=== PATIENT | male | born 1965 | race Caucasian/White ===

== ENCOUNTER 2020-08-21 10:08 | Outpatient (REF) | payer OTHER, SELFPAY ==
[2020-08-21 12:29] LABS: Alanine Aminotransferase 19 U/L (0-40); Albumin Level 4.5 g/dL (3.5-5.0); Alkaline Phosphatase 93 U/L (39-117); Anion Gap 13 (12-20); Aspartate Amino Transferase 15 U/L (5-37); Bilirubin Total 0.3 mg/dL (0.0-1.0); Blood Urea Nitrogen 9 mg/dL (9-16); Calcium 9.2 mg/dL (8.4-10.2); Carbon Dioxide 26 mmol/L (22-29); Chloride 98 mmol/L (96-108); Estimated Glomerular Filt Rate > 60; Glucose Random 107 mg/dL (60-115); Potassium 4.1 mmol/l (3.3-5.1); Sodium 133 mmol/L (135-145); Total Protein 6.8 g/dL (6.5-8.0)
== END 2020-08-21 10:09 | disposition home or self-care (01) ==
LOC: HO.LAB 10:08
PROVIDERS: PCP Internal Medicine; Visit Provider Internal Medicine
DX: E87.1 Hypo-osmolality and hyponatremia (principal); I10 Essential (primary) hypertension
CPT/HCPCS: 80053

== ENCOUNTER 2020-12-04 09:42 | Outpatient (REF) | payer OTHER, SELFPAY ==
[2020-12-04 10:46] LABS: MANUAL DIFF FLAG NO
[2020-12-04 10:57] LABS: Eosinophils Absolute Auto 0.4 X10*3/uL (0.0-0.4); Eosinophils Percent Auto 8.7 % (0-4); Hematocrit 40.1 % (42-52); Hemoglobin 14.4 g/dl (14.0-18.0); Imm Gran Abs Auto 0.02 X10*3/uL (0.00-0.03); Imm Gran Pct Auto 0.5 % (0.0-0.4); Lymphocytes Absolute Auto 1.1 X10*3/uL (1.2-4.9); Lymphocytes Percent Auto 26.7 % (20-40); Mean Corpuscular HGB Conc 35.9 g/dl (31.0-36.0); Mean Corpuscular Hemoglobin 30.6 pg (27.0-33.0); Mean Corpuscular Volume 85.3 fL (80-98); Monocytes Absolute Auto 0.5 X10*3/uL (0.1-1.2); Monocytes Percent Auto 12.1 % (2-11); Neutrophils Absolute Auto 2.1 X10*3/uL (2.0-8.3); Platelet Count 292 X10*3/uL (160-400); Red Cell Distribution Width 11.5 % (11.0-16.0)
[2020-12-04 11:38] LABS: Alanine Aminotransferase 13 U/L (0-40); Albumin Level 4.6 g/dL (3.5-5.0); Alkaline Phosphatase 105 U/L (39-117); Anion Gap 12 (12-20); Aspartate Amino Transferase 15 U/L (5-37); Bilirubin Total 0.5 mg/dL (0.0-1.0); Blood Urea Nitrogen 11 mg/dL (9-16); Calcium 9.1 mg/dL (8.4-10.2); Carbon Dioxide 28 mmol/L (22-29); Chloride 96 mmol/L (96-108); Cholesterol 157 mg/dL; Estimated Glomerular Filt Rate > 60; Glucose Random 93 mg/dL (60-115); HDL Cholesterol 61 mg/dL; LDL Cholesterol Calculated 86 mg/dl; Sodium 132 mmol/L (135-145); Thyroid Stimulating Hormone 1.39 uIU/mL (0.32-4.0); Triglycerides 51 mg/dL
== END 2020-12-04 09:43 | disposition home or self-care (01) ==
LOC: HO.LAB 09:42
PROVIDERS: PCP Internal Medicine; Visit Provider Internal Medicine
DX: E78.00 Pure hypercholesterolemia, unspecified (principal); E87.1 Hypo-osmolality and hyponatremia
CPT/HCPCS: 36415; 80053; 80061; 84443; 85025

== ENCOUNTER 2021-02-02 11:11 | Outpatient (REF) | payer OTHER, SELFPAY ==
--- NOTE | ~2021-02-02 | XR_ITS ---
EXAMINATION: XR SACROILIAC JOINTS CLINICAL INFORMATION: Left sacroiliac pain COMPARISON: None TECHNIQUE: 3 views of the sacroiliac joints FINDINGS: Sacroiliac joints are normal-appearing without evidence of proliferative or erosive arthritis. Bones of the pelvis are unremarkable. Soft tissues are unremarkable. XR/XR sacroiliac joint 1-2V IMPRESSION: Normal-appearing sacroiliac joints.
== END 2021-02-02 11:12 | disposition home or self-care (01) ==
LOC: HO.XRAY 11:11
PROVIDERS: PCP Internal Medicine; Visit Provider Internal Medicine
DX: M53.3 Sacrococcygeal disorders, not elsewhere classified (principal)
CPT/HCPCS: 72200

== ENCOUNTER 2021-03-21 09:45 | Outpatient (REF) | payer OTHER, SELFPAY ==
[2021-03-21 11:05] LABS: Glucose Urine UA NEG (NEG); Leukocyte Esterase Urine TRACE (NEG); Nitrite Urine NEG (NEG); Specific Gravity - Urine 1.015 (1.005-1.025); Urine Blood NEG (NEG); Urine Ketones NEG (NEG); Urine Protein NEG (NEG-TRACE)
[2021-03-21 11:10] LABS: Appearance Urine CLEAR; Color Urine YELLOW
[2021-03-21 11:26] LABS: Mucus Urine 1+ /LPF; RBC Urine 0-2 /HPF (0)
[2021-03-21 11:28] LABS: Potassium Urine Random 45.1 mmol/L
[2021-03-21 11:28] LABS: Anion Gap 9 (12-20); Blood Urea Nitrogen 11 mg/dL (9-16); Calcium 9.1 mg/dL (8.4-10.2); Carbon Dioxide 30 mmol/L (22-29); Chloride 94 mmol/L (96-108); Estimated Glomerular Filt Rate > 60; Potassium 4.1 mmol/L (3.3-5.1); Sodium 129 mmol/L (135-145)
== END 2021-03-21 09:46 | disposition home or self-care (01) ==
LOC: HO.LAB 09:45
PROVIDERS: PCP Internal Medicine; Visit Provider Internal Medicine Hypertension Specialist
DX: N18.30 Chronic kidney disease, stage 3 unspecified (principal)
CPT/HCPCS: 36415; 80051; 81001; 82310; 82436; 82565; 84133; 84300; 84520

== ENCOUNTER 2021-10-03 11:36 | Outpatient (REF) | payer OTHER, SELFPAY | END 2021-10-03 11:37 | disposition home or self-care (01) | LOC: HO.HMGCLDS 11:36 | PROVIDERS: Visit Provider Internal Medicine | DX: Z20.822 Contact with and (suspected) exposure to COVID-19 (principal) | CPT/HCPCS: C9803; U0003; U0005 ==

== ENCOUNTER 2021-11-30 08:47 | Outpatient (REF) | payer OTHER, SELFPAY ==
[2021-11-30 10:02] LABS: Alanine Aminotransferase 11 U/L (0-40); Albumin Level 4.3 g/dL (3.5-5.0); Alkaline Phosphatase 119 U/L (39-117); Anion Gap 10 (12-20); Aspartate Amino Transferase 13 U/L (5-37); Bilirubin Total 0.5 mg/dL (0.0-1.0); Blood Urea Nitrogen 13 mg/dL (9-16); Calcium 9.9 mg/dL (8.4-10.2); Carbon Dioxide 30 mmol/L (22-29); Chloride 100 mmol/L (96-108); Cholesterol 141 mg/dL; Estimated Glomerular Filt Rate 58; Glucose Random 107 mg/dL (60-115); HDL Cholesterol 55 mg/dL; LDL Cholesterol Calculated 75 mg/dl; Potassium 4.3 mmol/L (3.3-5.1); Sodium 136 mmol/L (135-145); Total Protein 6.9 g/dL (6.5-8.0); Triglycerides 58 mg/dL
== END 2021-11-30 08:48 | disposition home or self-care (01) ==
LOC: HO.LAB 08:47
PROVIDERS: PCP Internal Medicine; Visit Provider Internal Medicine
DX: E78.00 Pure hypercholesterolemia, unspecified (principal); E87.1 Hypo-osmolality and hyponatremia; F31.9 Bipolar disorder, unspecified; J45.21 Mild intermittent asthma with (acute) exacerbation
CPT/HCPCS: 36415; 80053; 80061; 84443

== ENCOUNTER 2022-03-21 08:54 | Outpatient (REF) | payer OTHER, SELFPAY ==
[2022-03-21 10:12] LABS: Anion Gap 11 (12-20); Blood Urea Nitrogen 11 mg/dL (9-16); Calcium 9.2 mg/dL (8.4-10.2); Carbon Dioxide 26 mmol/L (22-29); Chloride 102 mmol/L (96-108); Estimated Glomerular Filt Rate > 60; Glucose Random 107 mg/dL (60-115); Potassium 4.2 mmol/L (3.3-5.1); Sodium 135 mmol/L (135-145)
== END 2022-03-21 08:55 | disposition home or self-care (01) ==
LOC: HO.LAB 08:54
PROVIDERS: PCP Internal Medicine; Visit Provider Internal Medicine Hypertension Specialist
DX: E87.1 Hypo-osmolality and hyponatremia (principal)
CPT/HCPCS: 36415; 80048

== ENCOUNTER 2022-06-06 09:48 | Outpatient (REF) | payer OTHER, SELFPAY ==
[2022-06-06 10:55] LABS: Alanine Aminotransferase 10 U/L (0-40); Albumin Level 4.3 g/dL (3.5-5.0); Alkaline Phosphatase 125 U/L (39-117); Anion Gap 12 (12-20); Aspartate Amino Transferase 15 U/L (5-37); Bilirubin Total 0.5 mg/dL (0.0-1.0); Blood Urea Nitrogen 13 mg/dL (9-16); Calcium 9.2 mg/dL (8.4-10.2); Carbon Dioxide 25 mmol/L (22-29); Chloride 100 mmol/L (96-108); Estimated Glomerular Filt Rate > 60; Glucose Random 96 mg/dL (60-115); Potassium 4.3 mmol/L (3.3-5.1); Sodium 133 mmol/L (135-145); Total Protein 6.8 g/dL (6.5-8.0)
== END 2022-06-06 09:49 | disposition home or self-care (01) ==
LOC: HO.LAB 09:48
PROVIDERS: Visit Provider Internal Medicine
DX: Z00.00 Encounter for general adult medical examination without abnormal findings (principal); E78.00 Pure hypercholesterolemia, unspecified; J45.21 Mild intermittent asthma with (acute) exacerbation; N14.1 Nephropathy induced by other drugs, medicaments and biological substances
CPT/HCPCS: 36415; 80053

== ENCOUNTER 2022-12-31 08:11 | Outpatient (REF) | payer OTHER, SELFPAY ==
[2022-12-31 08:35] LABS: MANUAL DIFF FLAG NO
[2022-12-31 09:39] LABS: Basophils Absolute Auto 0.1 X10*3/uL (0.0-0.2); Basophils Percent Auto 1.2 % (0-2); Eosinophils Absolute Auto 0.7 X10*3/uL (0.0-0.4); Eosinophils Percent Auto 14.3 % (0-4); Hematocrit 40.3 % (42.0-52.0); Hemoglobin 13.8 g/dl (14.0-18.0); Imm Gran Abs Auto 0.01 X10*3/uL (0.00-0.03); Imm Gran Pct Auto 0.2 % (0.0-0.4); Lymphocytes Absolute Auto 1.2 X10*3/uL (1.2-4.9); Lymphocytes Percent Auto 24.3 % (20-40); Mean Corpuscular HGB Conc 34.2 g/dl (31.0-36.0); Mean Corpuscular Hemoglobin 30.5 pg (27.0-33.0); Mean Corpuscular Volume 89.2 fL (80.0-98.0); Mean Platelet Volume 9.9 fL (9.4-12.4); Monocytes Absolute Auto 0.6 X10*3/uL (0.1-1.2); Monocytes Percent Auto 11.2 % (2-11); Neutrophils Absolute Auto 2.5 x10*3/uL (2.0-8.3); Neutrophils Percent Auto 48.8 % (45-73); Platelet Count 285 X10*3/uL (160-400); Red Blood Count 4.52 X10*6/uL (4.60-5.80); Red Cell Distribution Width 11.9 % (11.0-16.0); White Blood Count 5.1 X10*3/uL (4.8-10.8)
[2022-12-31 10:34] LABS: Alanine Aminotransferase 11 U/L (0-40); Albumin Level 4.3 g/dL (3.5-5.0); Alkaline Phosphatase 119 U/L (39-117); Anion Gap 12 (12-20); Aspartate Amino Transferase 16 U/L (5-37); Bilirubin Total 0.5 mg/dL (0.0-1.0); Blood Urea Nitrogen 20 mg/dL (9-16); Calcium 9.1 mg/dL (8.4-10.2); Carbon Dioxide 27 mmol/L (22-29); Chloride 103 mmol/L (96-108); Cholesterol 139 mg/dL; Estimated Glomerular Filt Rate > 60; Glucose Random 98 mg/dL (60-115); HDL Cholesterol 56 mg/dL; LDL Cholesterol Calculated 76 mg/dl; Potassium 3.9 mmol/L (3.3-5.1); Sodium 138 mmol/L (135-145); Total Protein 6.7 g/dL (6.5-8.0); Triglycerides 39 mg/dL
[2022-12-31 10:37] LABS: Thyroid Stimulating Hormone 1.26 uIU/mL (0.32-4.0)
== END 2022-12-31 08:12 | disposition home or self-care (01) ==
LOC: HO.LAB 08:11
PROVIDERS: Absent Provider Internal Medicine Hypertension Specialist; PCP Internal Medicine; Visit Provider Internal Medicine
DX: J45.21 Mild intermittent asthma with (acute) exacerbation (principal); E87.1 Hypo-osmolality and hyponatremia; E78.00 Pure hypercholesterolemia, unspecified
CPT/HCPCS: 36415; 80053; 80061; 84443; 85025

== ENCOUNTER 2023-05-05 13:40 | Outpatient (REF) | payer OTHER, SELFPAY ==
[2023-05-05 14:57] LABS: Alanine Aminotransferase 15 U/L (0-40); Albumin Level 4.3 g/dL (3.5-5.0); Alkaline Phosphatase 141 U/L (39-117); Anion Gap 9 (12-20); Aspartate Amino Transferase 13 U/L (5-37); Bilirubin Total 0.3 mg/dL (0.0-1.0); Blood Urea Nitrogen 17 mg/dL (9-16); Calcium 9.7 mg/dL (8.4-10.2); Carbon Dioxide 32 mmol/L (22-29); Chloride 103 mmol/L (96-108); Estimated Glomerular Filt Rate > 60; Glucose Random 105 mg/dL (60-115); Potassium 4.5 mmol/L (3.3-5.1); Sodium 139 mmol/L (135-145); Total Protein 7.1 g/dL (6.5-8.0)
== END 2023-05-05 13:41 | disposition home or self-care (01) ==
LOC: HO.LAB 13:40
PROVIDERS: PCP Internal Medicine; Visit Provider Internal Medicine
DX: Z00.00 Encounter for general adult medical examination without abnormal findings (principal); E78.00 Pure hypercholesterolemia, unspecified; I10 Essential (primary) hypertension; J45.901 Unspecified asthma with (acute) exacerbation; Z12.5 Encounter for screening for malignant neoplasm of prostate
CPT/HCPCS: 36415; 80053; 84153

== ENCOUNTER 2023-07-14 16:11 | Outpatient (REF) | payer OTHER, SELFPAY ==
[2023-07-14 17:49] LABS: Anion Gap 14 (12-20); Blood Urea Nitrogen 25 mg/dL (9-16); Calcium 9.9 mg/dL (8.4-10.2); Carbon Dioxide 26 mmol/L (22-29); Chloride 105 mmol/L (96-108); Estimated Glomerular Filt Rate 42; Potassium 3.9 mmol/L (3.3-5.1); Sodium 141 mmol/L (135-145)
== END 2023-07-14 16:12 | disposition home or self-care (01) ==
LOC: HO.LAB 16:11
PROVIDERS: Visit Provider Internal Medicine Hypertension Specialist
DX: N18.2 Chronic kidney disease, stage 2 (mild) (principal)
CPT/HCPCS: 36415; 80051; 82310; 82565; 84520

== ENCOUNTER 2024-04-05 13:29 | Outpatient (REF) | payer OTHER, SELFPAY ==
[2024-04-05 14:12] LABS: MANUAL DIFF FLAG NO
[2024-04-05 15:40] LABS: Basophils Absolute Auto 0.1 X10*3/uL (0.0-0.2); Eosinophils Absolute Auto 0.3 X10*3/uL (0.0-0.4); Eosinophils Percent Auto 5.9 % (0-4); Hematocrit 37.5 % (42.0-52.0); Hemoglobin 13.2 g/dl (14.0-18.0); Imm Gran Abs Auto 0.01 X10*3/uL (0.00-0.03); Imm Gran Pct Auto 0.2 % (0.0-0.4); Lymphocytes Absolute Auto 1.1 X10*3/uL (1.2-4.9); Lymphocytes Percent Auto 22.8 % (20-40); Mean Corpuscular HGB Conc 35.2 g/dl (31.0-36.0); Mean Corpuscular Hemoglobin 30.8 pg (27.0-33.0); Mean Corpuscular Volume 87.6 fL (80.0-98.0); Mean Platelet Volume 9.6 fL (9.4-12.4); Monocytes Absolute Auto 0.5 X10*3/uL (0.1-1.2); Monocytes Percent Auto 10.4 % (2-11); Neutrophils Absolute Auto 2.9 x10*3/uL (2.0-8.3); Neutrophils Percent Auto 59.7 % (45-73); Platelet Count 275 X10*3/uL (160-400); Red Blood Count 4.28 X10*6/uL (4.60-5.80); Red Cell Distribution Width 11.9 % (11.0-16.0); White Blood Count 4.9 X10*3/uL (4.8-10.8)
[2024-04-05 16:18] LABS: Anion Gap 9 (12-20); Blood Urea Nitrogen 13 mg/dL (9-16); Calcium 9.8 mg/dL (8.4-10.2); Carbon Dioxide 30 mmol/L (22-29); Chloride 104 mmol/L (96-108); Estimated Glomerular Filt Rate > 60; Glucose Random 94 mg/dL (60-115); Potassium 4.2 mmol/L (3.3-5.1); Sodium 139 mmol/L (135-145)
== END 2024-04-05 13:30 | disposition home or self-care (01) ==
LOC: HO.LAB 13:29
PROVIDERS: PCP Internal Medicine; Visit Provider Internal Medicine Hypertension Specialist
DX: N18.9 Chronic kidney disease, unspecified (principal)
CPT/HCPCS: 36415; 80048; 85025; 99212

== ENCOUNTER 2024-04-05 13:29 | Outpatient (AMB) | payer OTHER, SELFPAY ==
[2024-04-05 13:32] VITALS: BP 102/72; PULSE 90; O2SAT 96; BMI 24.5
--- NOTE | 2024-04-05 13:32 | HO.NEPHOV_ITS ---
Vital Signs 04/05/24 13:32 Height 6 ft 1 in Weight 186 lb BMI 24.5 BP 102/72 Blood Pressure Location Lt brachial Position Sitting Pulse 90 Pulse Source Pulse Oximeter Pulse Oximetry (%) 96 Oxygen Delivery Method Room Air Intake Visit Reasons: Previous pt/ Unable to reach Perforator Typist Required: No Accompanied by: Self / Same As Patient Allergies Penicillins Allergy (Mild, Verified 04/05/24 13:36) UNKNOWN Sulfa (Sulfonamide Antibiotics) Allergy (Mild, Verified 04/05/24 13:36) UNKNOWN Medication List - Last Reconciled 04/05/24 by Brendon Mcwilliams MD albuterol sulfate 90 mcg/actuation (Ventolin HFA) inhalation PRN losartan 50 mg PO DAILY oxcarbazepine 1,800 mg PO DAILY quetiapine 800 mg PO BEDTIME simvastatin 20 mg PO BEDTIME zolpidem 10 mg PO BEDTIME PRN HPI Comments Details: Vignesh is here for follow-up regarding CKD. He is well known to me. He has mild CKD and renal function has been stable for the last few years. Today he has no new complaints. His oral intake is adequate. No changes have been made to his medications He has no polyuria polydipsia. History of flank pain and he has not had any ultrasonogram of the [facility] Family History (Updated 04/05/24 @ 13:35 by ZACHARY Woods) Father Kidney disease Sister Heart attack Social History (Updated 04/05/24 @ 13:35 by ZACHARY Woods) Alcohol intake: never Patient Tobacco Use Status: Never used Tobacco Physical Exam Vital Signs: Last Vital Signs Pulse 90 04/05/24 13:32 BP 102/72 04/05/24 13:32 Pulse Ox 96 04/05/24 13:32 Oxygen Delivery Method Room Air 04/05/24 13:32 BMI result Body Mass Index 24.5 Const General: comfortable; No acute distress Orientation/consciousness: patient oriented x3 Eyes General: appearance normal, both eyes and all related structures Visual Oliveros: normal visual oliveros by confrontation Neck Neck: Yes supple and Yes no JVD Resp Effort & Inspection: normal respiratory effort and respiratory effort not decreased Auscultation: rhonchi Cardio Palpation: no palpable S3 and no palpable S4 Heart sounds: no rubs GI Inspection: Yes normal to inspection Palpation (GI): Soft to palpation Percussion: Yes normal to percussion Auscultation: normal bowel sounds General: Yes no CVA tenderness Back/Spine/Pelvis Back: no CVA tenderness Skin General skin exam: no petechiae and no purpura Neuro General: patient oriented x3 and no focal motor deficits Extrem General: No clubbing and No edema Results Reviewed Nephrology Results: Hgb 13.2 g/dl (14.0-18.0) L 04/05/24 WBC 4.9 X10*3/uL (4.8-10.8) 04/05/24 Plt Count 275 X10*3/uL (160-400) 04/05/24 Sodium 139 mmol/L (135-145) 04/05/24 Potassium 4.2 mmol/L (3.3-5.1) 04/05/24 Chloride 104 mmol/L (96-108) 04/05/24 Carbon Dioxide 30 mmol/L (22-29) H 04/05/24 BUN 13 mg/dL (9-16) 04/05/24 Creatinine 0.89 mg/dL (0.5-1.4) 04/05/24 Calcium 9.8 mg/dL (8.4-10.2) 04/05/24 Urine Protein NEG MG/DL (NEG-TRACE) 03/21/21 Assessment & Plan Assessment & Plan (1) CKD (chronic kidney disease): Code(s): N18.9 - Chronic kidney disease, unspecified Category: Medical Plan Vignesh has mild CKD. Renal function stable. Recent creatinine is down to 0.89 which may be his baseline. Goal is to slow the progression of the kidney disease. Encouraged him to stand low-sodium diet He has to increase his fluid intake. Continue overt nephrotoxic agents. Watch for polyuria polydipsia. Orders: Orders UA and rflx microscopic 04/05/24 N18.9 - Chronic kidney disease, unspecified Complete Blood Count Auto Diff 04/05/24 N18.9 - Chronic kidney disease, unspecified Basic Metabolic Panel 04/05/24 N18.9 - Chronic kidney disease, unspecified Total Protein Urine Random 04/05/24 N18.9 - Chronic kidney disease, unspecified Creatinine Urine 04/05/24 N18.9 - Chronic kidney disease, unspecified US renal BI 04/05/24 N18.9 - Chronic kidney disease, unspecified Coding Level of Care Code Est Pt Level 4 (40143) Diagnoses CKD (chronic kidney disease) N18.9
== END 2024-04-05 13:48 | disposition home or self-care (01) ==
PROVIDERS: PCP Internal Medicine; Visit Provider Internal Medicine Hypertension Specialist
DX: N18.9 Chronic kidney disease, unspecified (principal)
CPT/HCPCS: 99214

== ENCOUNTER 2024-04-07 12:18 | Outpatient (REF) | payer OTHER, SELFPAY ==
[2024-04-07 13:04] LABS: Appearance Urine Clear; Color Urine Yellow; Glucose Urine UA Negative (Negative); Leukocyte Esterase Urine Negative (Negative); Nitrite Urine Negative (Negative); PH 5.5 (5.0-9.0); Specific Gravity - Urine 1.025 (1.005-1.025); Urine Blood Negative (Negative); Urine Ketones Negative (Negative); Urine Protein Trace mg/dL (Neg-Trace)
[2024-04-07 13:36] LABS: Creatinine Urine 200.11 mg/dL; Total Protein Urine Random 13 mg/dL (<12)
== END 2024-04-07 12:19 | disposition home or self-care (01) ==
LOC: HO.LAB 12:18
PROVIDERS: PCP Internal Medicine; Visit Provider Internal Medicine Hypertension Specialist
DX: N18.9 Chronic kidney disease, unspecified (principal)
CPT/HCPCS: 81003; 82570; 84156

== ENCOUNTER 2024-04-16 14:21 | Outpatient (REF) | payer OTHER, SELFPAY ==
--- NOTE | ~2024-04-16 | US_ITS ---
EXAMINATION: US RETROPERITONEAL LIMITED (RENAL ONLY) CLINICAL INFORMATION: Chronic kidney disease, unspecified. COMPARISON: CT abdomen and pelvis 08/08/2014. Ultrasound renal 06/10/2013. Ultrasound bladder 06/10/2013. TECHNIQUE: Real-time imaging of the kidneys. FINDINGS: RIGHT KIDNEY: 11.1 x 4.8 x 6.7 cm (SAG x AP x TRV). The kidney is normal in size, contour, and echogenicity. Renal cortical thickness is normal. No calculi or focal parenchymal lesions. No hydronephrosis. LEFT KIDNEY: 12.8 x 5.2 x 6.6 cm (SAG x AP x TRV). The kidney is normal in size, contour, and echogenicity. Renal cortical thickness is normal. No renal calculi or hydronephrosis. A benign mid renal 1.1 cm Bosniak class II renal cyst is noted with some mural calcification which requires no additional imaging or follow up. In retrospect, this can be seen on the prior 2013 CT scan (10:332) but no calcification was present at that time. No solid renal masses are seen. US/US renal BI IMPRESSION: Negative exam.
== END 2024-04-16 14:22 | disposition home or self-care (01) ==
LOC: HO.HMGCX 14:21
PROVIDERS: PCP Internal Medicine; Visit Provider Internal Medicine Hypertension Specialist
DX: N18.9 Chronic kidney disease, unspecified (principal)
CPT/HCPCS: 76775

== ENCOUNTER 2024-05-03 10:54 | Outpatient (AMB) | payer OTHER, SELFPAY ==
[2024-05-03 10:55] VITALS: BP 106/72; PULSE 96; O2SAT 96; BMI 24.8
--- NOTE | 2024-05-03 10:55 | HO.NEPHOV ---
Vital Signs 05/03/24 10:55 Height 6 ft 1 in Weight 188 lb BMI 24.8 BP 106/72 Blood Pressure Location Lt brachial Position Sitting Pulse 96 Pulse Source Pulse Oximeter Pulse Oximetry (%) 96 Oxygen Delivery Method Room Air Intake Visit Reasons: 4 wks follow u/ LVM Review Engineer Required: No Accompanied by: Self / Same As Patient Allergies Penicillins Allergy (Mild, Verified 05/03/24 10:57) UNKNOWN Sulfa (Sulfonamide Antibiotics) Allergy (Mild, Verified 05/03/24 10:57) UNKNOWN Medication List - Last Reconciled 05/03/24 by Brendon Mcwilliams MD albuterol sulfate 90 mcg/actuation (Ventolin HFA) inhalation PRN losartan 50 mg PO DAILY oxcarbazepine 1,800 mg PO DAILY quetiapine 800 mg PO BEDTIME simvastatin 20 mg PO BEDTIME zolpidem 10 mg PO BEDTIME PRN HPI Comments Details: Vignesh is here for follow-up regarding CKD. He is well known to me. He has mild CKD and renal function has been stable for the last few years. Today he has no new complaints. His oral intake is adequate. No changes have been made to his medications He has no polyuria polydipsia. History of flank pain and he has not had any ultrasonogram of the [facility] Family History Father Kidney disease Sister Heart attack Social History Alcohol intake: never Patient Tobacco Use Status: Never used Tobacco Physical Exam Vital Signs: Last Vital Signs Pulse 96 05/03/24 10:55 BP 106/72 05/03/24 10:55 Pulse Ox 96 05/03/24 10:55 Oxygen Delivery Method Room Air 05/03/24 10:55 BMI result Body Mass Index 24.8 Results Reviewed Nephrology Results: Hgb 13.2 g/dl (14.0-18.0) L 04/05/24 WBC 4.9 X10*3/uL (4.8-10.8) 04/05/24 Plt Count 275 X10*3/uL (160-400) 04/05/24 Sodium 139 mmol/L (135-145) 04/05/24 Potassium 4.2 mmol/L (3.3-5.1) 04/05/24 Chloride 104 mmol/L (96-108) 04/05/24 Carbon Dioxide 30 mmol/L (22-29) H 04/05/24 BUN 13 mg/dL (9-16) 04/05/24 Creatinine 0.89 mg/dL (0.5-1.4) 04/05/24 Calcium 9.8 mg/dL (8.4-10.2) 04/05/24 Urine Protein Trace mg/dL (Neg-Trace) 04/07/24 Urine Creatinine 200.11 mg/dL 04/07/24 Renal US 04/16/24 Assessment & Plan Assessment & Plan (1) CKD (chronic kidney disease): Code(s): N18.9 - Chronic kidney disease, unspecified Category: Medical Plan Vignesh has mild CKD. Renal function stable. Recent creatinine is down to 0.89 which may be his baseline. Goal is to slow the progression of the kidney disease. Encouraged him to stand low-sodium diet He has to increase his fluid intake. Continue to avoid nephrotoxic agents. Watch for polyuria polydipsia. Coding Level of Care Code Est Pt Level 3 (91773) Diagnoses CKD (chronic kidney disease) N18.9
== END 2024-05-03 11:10 | disposition home or self-care (01) ==
PROVIDERS: PCP Internal Medicine; Visit Provider Internal Medicine Hypertension Specialist
DX: N18.9 Chronic kidney disease, unspecified (principal)
CPT/HCPCS: 99213

== ENCOUNTER → 2024-05-03 10:54 | Outpatient (BNVA) | payer OTHER, SELFPAY | PROVIDERS: PCP Internal Medicine; Visit Provider Internal Medicine Hypertension Specialist | DX: N18.9 Chronic kidney disease, unspecified (principal) | CPT/HCPCS: 99212 ==

== ENCOUNTER 2024-08-16 12:00 | Outpatient (REF) | payer OTHER, SELFPAY ==
[2024-08-16 13:35] LABS: MANUAL DIFF FLAG NO
[2024-08-16 13:50] LABS: Basophils Absolute Auto 0.1 X10*3/uL (0.0-0.2); Basophils Percent Auto 1.3 % (0-2); Eosinophils Absolute Auto 0.3 X10*3/uL (0.0-0.4); Eosinophils Percent Auto 5.9 % (0-4); Hematocrit 37.5 % (42.0-52.0); Hemoglobin 12.8 g/dl (14.0-18.0); Imm Gran Abs Auto 0.03 X10*3/uL (0.00-0.03); Imm Gran Pct Auto 0.7 % (0.0-0.4); Lymphocytes Percent Auto 21.8 % (20-40); Mean Corpuscular HGB Conc 34.1 g/dl (31.0-36.0); Mean Corpuscular Hemoglobin 30.3 pg (27.0-33.0); Mean Corpuscular Volume 88.7 fL (80.0-98.0); Mean Platelet Volume 9.9 fL (9.4-12.4); Monocytes Absolute Auto 0.5 X10*3/uL (0.1-1.2); Monocytes Percent Auto 10.8 % (2-11); Neutrophils Absolute Auto 2.7 x10*3/uL (2.0-8.3); Neutrophils Percent Auto 59.5 % (45-73); Platelet Count 271 X10*3/uL (160-400); Red Blood Count 4.23 X10*6/uL (4.60-5.80); Red Cell Distribution Width 12.1 % (11.0-16.0); White Blood Count 4.5 X10*3/uL (4.8-10.8)
[2024-08-16 14:10] LABS: Alanine Aminotransferase 18 U/L (0-40); Albumin Level 4.2 g/dL (3.5-5.0); Alkaline Phosphatase 126 U/L (39-117); Anion Gap 10 (12-20); Aspartate Amino Transferase 20 U/L (5-37); Bilirubin Total 0.3 mg/dL (0.0-1.0); Blood Urea Nitrogen 17 mg/dL (9-16); Calcium 9.6 mg/dL (8.4-10.2); Carbon Dioxide 27 mmol/L (22-29); Chloride 104 mmol/L (96-108); Cholesterol 132 mg/dL (<200); Estimated Glomerular Filt Rate > 60; Glucose Random 92 mg/dL (60-115); HDL Cholesterol 54 mg/dL (>40); LDL Cholesterol Calculated 68 mg/dL (<100); Potassium 3.8 mmol/L (3.3-5.1); Sodium 137 mmol/L (135-145); Total Protein 6.7 g/dL (6.5-8.0); Triglycerides 50 mg/dL (<150)
[2024-08-16 14:40] LABS: Prostate Specific Antigen Scr 4.24 ng/mL (<0.05-4.0)
== END 2024-08-16 12:01 | disposition home or self-care (01) ==
LOC: HO.HMGCLDS 12:00
PROVIDERS: PCP Internal Medicine; Visit Provider Internal Medicine
DX: Z00.00 Encounter for general adult medical examination without abnormal findings (principal); E78.00 Pure hypercholesterolemia, unspecified; I10 Essential (primary) hypertension; N40.0 Benign prostatic hyperplasia without lower urinary tract symptoms
CPT/HCPCS: 36415; 80053; 80061; 84153; 85025

== ENCOUNTER 2024-09-06 10:35 | Outpatient (AMB) | payer OTHER, SELFPAY ==
[2024-09-06 10:36] VITALS: BP 92/62; PULSE 94; O2SAT 97; BMI 24.4
--- NOTE | 2024-09-06 10:36 | HO.NEPHOV ---
Vital Signs 09/06/24 10:36 Height 6 ft 1 in Weight 185 lb BMI 24.4 BP 92/62 Blood Pressure Location Lt brachial Position Sitting Pulse 94 Pulse Source Pulse Oximeter Pulse Oximetry (%) 97 Oxygen Delivery Method Room Air Intake Visit Reasons: CKD/ LVM Shake Backboard Notcher Required: No Accompanied by: Self / Same As Patient Allergies Penicillins Allergy (Mild, Verified 09/06/24 10:39) UNKNOWN Sulfa (Sulfonamide Antibiotics) Allergy (Mild, Verified 09/06/24 10:39) UNKNOWN Medication List - Last Reconciled 09/06/24 by Brendon Mcwilliams MD albuterol sulfate 90 mcg/actuation (Ventolin HFA) inhalation PRN losartan 50 mg PO DAILY oxcarbazepine 1,800 mg PO DAILY quetiapine 800 mg PO BEDTIME simvastatin 20 mg PO BEDTIME zolpidem 10 mg PO BEDTIME PRN HPI Comments Details: Vignesh is here for follow-up regarding CKD. He is well known to me. He has mild CKD and renal function has been stable for the last few years. Today he has no new complaints. His oral intake is adequate. No changes have been made to his medications He has no polyuria or polydipsia. History of flank pain and he has not had any ultrasonogram of the [facility] Family History Father Kidney disease Sister Heart attack Social History Alcohol intake: never Patient Tobacco Use Status: Never used Tobacco Physical Exam Vital Signs: Last Vital Signs Pulse 94 09/06/24 10:36 BP 92/62 09/06/24 10:36 Pulse Ox 97 09/06/24 10:36 Oxygen Delivery Method Room Air 09/06/24 10:36 BMI result Body Mass Index 24.4 Comfortable Neck supple no JVD. Lungs entry equal no rales. Heart S1-S2 heard no gallop or rub. Abdomen soft nontender. Neuro alert awake oriented. No asterixis. Extremities no edema. Results Reviewed Nephrology Results: Hgb 12.8 g/dl (14.0-18.0) L 08/16/24 WBC 4.5 X10*3/uL (4.8-10.8) L 08/16/24 Plt Count 271 X10*3/uL (160-400) 08/16/24 Sodium 137 mmol/L (135-145) 08/16/24 Potassium 3.8 mmol/L (3.3-5.1) 08/16/24 Chloride 104 mmol/L (96-108) 08/16/24 Carbon Dioxide 27 mmol/L (22-29) 08/16/24 BUN 17 mg/dL (9-16) H 08/16/24 Creatinine 1.05 mg/dL (0.5-1.4) 08/16/24 Calcium 9.6 mg/dL (8.4-10.2) 08/16/24 Urine Protein Trace mg/dL (Neg-Trace) 04/07/24 Urine Creatinine 200.11 mg/dL 04/07/24 Renal US 04/16/24 Assessment & Plan Assessment & Plan (1) CKD (chronic kidney disease): Code(s): N18.9 - Chronic kidney disease, unspecified Category: Medical Plan iVgnesh has mild CKD. Renal function stable adn at baseline. Goal is to slow the progression of the kidney disease. Encouraged him to stand low-sodium diet He has to increase his fluid intake. Continue to avoid nephrotoxic agents. Watch for polyuria polydipsia. BP is rather low Will decrease Losartan to 25 mg QD from 50 mg ( 09/06/24) Medications: Changed From losartan 50 mg PO DAILY To losartan 25 mg PO DAILY Coding Level of Care Code Est Pt Level 4 (59431) Diagnoses CKD (chronic kidney disease) N18.9
== END 2024-09-06 10:48 | disposition home or self-care (01) ==
PROVIDERS: PCP Internal Medicine; Visit Provider Internal Medicine Hypertension Specialist
DX: N18.2 Chronic kidney disease, stage 2 (mild) (principal)
CPT/HCPCS: 99213

== ENCOUNTER → 2024-09-06 10:35 | Outpatient (BNVA) | payer OTHER, SELFPAY | PROVIDERS: PCP Internal Medicine; Visit Provider Internal Medicine Hypertension Specialist | DX: N18.2 Chronic kidney disease, stage 2 (mild) (principal) | CPT/HCPCS: 99212 ==

== ENCOUNTER 2025-02-22 09:44 | Outpatient (AMB) | payer OTHER, SELFPAY ==
[2025-02-22 09:50] VITALS: BP 118/72; PULSE 77; O2SAT 97; BMI 23.3
--- NOTE | 2025-02-22 09:50 | HO.NEPHOV ---
Vital Signs 02/22/25 09:50 Height 6 ft 1 in Weight 177 lb BMI 23.3 BP 118/72 Blood Pressure Location Rt brachial Position Sitting Pulse 77 Pulse Source Pulse Oximeter Pulse Oximetry (%) 97 Oxygen Delivery Method Room Air Intake Visit Reasons: CKD/ Conf Manager Commodities Required: No Accompanied by: Self / Same As Patient Allergies Penicillins Allergy (Mild, Verified 02/22/25 09:52) UNKNOWN Sulfa (Sulfonamide Antibiotics) Allergy (Mild, Verified 02/22/25 09:52) UNKNOWN Medication List - Last Reconciled 02/22/25 by Brendon Mcwilliams MD albuterol sulfate 90 mcg/actuation (Ventolin HFA) inhalation PRN losartan 25 mg PO DAILY oxcarbazepine 1,800 mg PO DAILY quetiapine 800 mg PO BEDTIME simvastatin 20 mg PO BEDTIME zolpidem 10 mg PO BEDTIME PRN HPI Comments Details: Vignesh is here for follow-up regarding CKD. He is well known to me. He has mild CKD and renal function has been stable for the last few years. Today he has no new complaints. His oral intake is adequate. No changes have been made to his medications He has no polyuria or polydipsia. History of flank pain and he has not had any ultrasonogram 02/22/25 59-year-old male presenting with complaints of chest pain that occurs mainly at night or during stressful situations. The pain is localized to the left side and described as a heaviness beneath the chest, without any radiating pain. The patient reports experiencing constipation, which is concurrent with his other condition; however, constipation is not his main concern at this visit. He has not made any changes to his prescribed medications, which include losartan and oxycodone. He has been diagnosed with chronic kidney disease currently staged at II to early III, alongside essential hypertension and asthma. He continues to take measures to stay hydrated and follows dietary restrictions relevant to his conditions. The last laboratory work was conducted in August with a new evaluation planned. He mentions his adherence to aspirin for cardiac protection and denies taking NSAIDs. [facility] Family History Father Kidney disease Sister Heart attack Social History Alcohol intake: never Patient Tobacco Use Status: Never used Tobacco Physical Exam Vital Signs: Last Vital Signs Pulse 77 02/22/25 09:50 BP 118/72 02/22/25 09:50 Pulse Ox 97 02/22/25 09:50 Oxygen Delivery Method Room Air 02/22/25 09:50 BMI result Body Mass Index 23.3 Results Reviewed Nephrology Results: Hgb 12.8 g/dl (14.0-18.0) L 08/16/24 WBC 4.5 X10*3/uL (4.8-10.8) L 08/16/24 Plt Count 271 X10*3/uL (160-400) 08/16/24 Sodium 137 mmol/L (135-145) 08/16/24 Potassium 3.8 mmol/L (3.3-5.1) 08/16/24 Chloride 104 mmol/L (96-108) 08/16/24 Carbon Dioxide 27 mmol/L (22-29) 08/16/24 BUN 17 mg/dL (9-16) H 08/16/24 Creatinine 1.05 mg/dL (0.5-1.4) 08/16/24 Calcium 9.6 mg/dL (8.4-10.2) 08/16/24 Urine Protein Trace mg/dL (Neg-Trace) 04/07/24 Urine Creatinine 200.11 mg/dL 04/07/24 Renal US 04/16/24 Assessment & Plan Assessment & Plan (1) CKD (chronic kidney disease): Code(s): N18.9 - Chronic kidney disease, unspecified Category: Medical Plan Vignesh has mild CKD. Renal function stable adn at baseline. Goal is to slow the progression of the kidney disease. Encouraged him to stand low-sodium diet He has to increase his fluid intake. Continue to avoid nephrotoxic agents. Watch for polyuria polydipsia. BP is rather low Will decrease Losartan to 25 mg QD from 50 mg ( 09/06/24) 02/22/25 We will conduct comprehensive blood work focusing on kidney and liver function tests and a urine analysis for protein screening. This is to track chronic kidney disease marked currently as stage II to early III. The current management plan including losartan and the inhaler remains unchanged due to stable status. Advise continues on lifestyle modifications including sufficient hydration, low salt intake, and avoidance of NSAIDs to protect kidney function. The patient will continue taking aspirin as preventive cardiac management. We will follow up in six months for routine monitoring unless new symptoms warrant earlier consultation. Orders: Orders Complete Blood Count no Diff Today N18.9 - Chronic kidney disease, unspecified Creatinine Urine Today N18.9 - Chronic kidney disease, unspecified Comprehensive Met. Panel Today N18.9 - Chronic kidney disease, unspecified UA and rflx microscopic Today N18.9 - Chronic kidney disease, unspecified Total Protein Urine Random Today N18.9 - Chronic kidney disease, unspecified Coding Level of Care Code Est Pt Level 4 (41102) Diagnoses CKD (chronic kidney disease) N18.9
--- OUTSIDE RECORDS SUMMARY | 2025-02-22 10:26 | XMS_ITS | Clinical Summary ---
Author Organization [facility] Address [address] [place] [address] Phone Care Team Providers Care Yolk Spray Drier Name Role Phone Tracy Boone MD Primary Care Provider Allergies Active Allergy Reactions Criticality Noted Date Comments Penicillins Other (see comments) 03/23/2021 Sulfa Antibiotics Other (see comments) 03/23/20 21 Medications albuterol (2.5 MG/3ML) 0.083% nebulizer solution Active buPROPion (ZYBAN) 150 MG 12 hr tablet Take 1 tablet by mouth 1 (one) time each day Active OXcarbazepine (TRILEPTAL) 150 MG tablet Take 1 tablet by mouth 2 (two) times a day Active QUEtiapine (SEROquel) 400 MG tablet Take 2 tablets by mouth at bed time Active simvastatin (ZOCOR) 20 MG tablet Take 1 tablet by mouth 1 (one) time each day Active zolpidem (AMBIEN) 10 MG tablet Take 1 tablet by mouth every night Active ibuprofen (ADVIL,MOTRIN) 600 MG tablet 03/20/2021 Activ e Active Problems Problem Noted Date Diagnosed Date Chronic kidney disease stage 3 03/23/2021 Hyposmolality and/or hyponatremia 03/23/2021 Social History Tobacco Use Types Packs/Day Years Used Date Smoking Tobacco: Never Smokeless Tobacco: Never Tobacco Cessation:Counseling Given: Not Answered Alcohol Use Standard Drinks/Week Comments Yes 0 (1 standard drink = 0.6 oz pur e alcohol) Sex and Gender Information Value Date Recorded Sex Assigned at Not on file Legal Sex Male 5:08 PM EST Gender Identity Not on file Sexual Orientation Not on file Last Filed Vital Signs Vital Sign Reading Time Taken Comments Blood Pressure 110/65 07/14/2023 4:03 PM EDT Pulse 86 07/14/2023 4:03 PM EDT Temperature - - Respiratory Rate - - Oxygen Saturation 98% 07/14/2023 4:03 PM EDT Inhaled Oxygen Concentration - - Weight 86.5 kg (190 lb 9.6 oz) 07/14/2023 4:03 P M EDT Height 185.4 cm (6' 1 ) 03/19/2019 12:00 PM EDT Body Mass Index 25.15 03/19/2019 12:00 PM EDT Plan of Treatment Health Maintenance Due Date Last Done Comments Pneumococcal Vaccine: 50+ Ye ars (1 of 2 - PCV) 1982 Colorectal Cancer Screening: Annual FOBT 2012 Colorectal Cancer Screening: Colonoscopy 2012 Colorectal Cancer Screening: Sigmoidoscopy 2012 Influenza Vaccine (Season Ended) 2025 Hepatitis B Vaccine Aged Out No longe r eligible based on patient's age to complete this topic Insurance Medicaid Medicaid Care Teams Yolk Spray Drier Relationship Specialty Start Date End Date Tracy Boone MD [address] [place] [address] PCP - General 10/23/20
--- OUTSIDE RECORDS SUMMARY | 2025-02-22 10:26 | XMS_ITS | Clinical Summary ---
Author Organization [facility] Address [address] [place] [address] Care Team Providers Care Lpn Care Manager Name Role Phone Unavailable Primary Care Provider Unavailabl e Source Comments PLEASE NOTE, if this patient is a minor, it may be UNLAWFUL to discuss sensitive information that is contained in these records (such as FAMILY PLANNING, MENTAL HEALTH or SUBSTANCE ABUSE) with the minor patient's parent or other person without the patient's specific authorization.[facility] Medications naproxen (NAPROSYN) 500 mg tabletIndication s:Retained tooth root Take 1 Tablet by mouth 2 (two) times daily with a meal 10 Tablet 02/24/2024 Active Social History Tobacco Use Types Packs/Day Years Used Date Smoking Tobacco: Never Passive Smoke Exposure: Never Smokeless Tobacco: Never Tobacco Cessation:Counseling Given: Not Answered Social Connections Answer Date Recorded Connectedness 0 06/27/2024 Financial Resource Strain Answer Date R ecorded Financial Resource Strain 0 2023 Stress Answer Date Recorded Stress 0 11/11/2023 Physical Activity Answer Date Recorded Physical Activity 0 11/11/2023 Food Insecurity Answer Date Recorded Food 0 07/08/2024 Transportation Needs Answer Date Record ed Transportation 0 11/11/2023 Housing Stability Answer Date Recorded Housing 0 11/11/2023 Safety and Environment Answer Date Case rded Safety 0 11/11/2023 Utilities Answer Date Recorded Utilities 0 11/11/2023 Employment Answer Date Recorded Stress 0 06/27/2024 Sex and Gender Information Value Date Recorded Sex Assigned at Not on file Legal Sex Male 12:37 PM PDT Gender Identity Not on file Sexual Orientation Not on file Last Filed Vital Signs Vital Sign Reading Time Taken Comments Blood Pressure 118/76 02/24/2024 1:09 PM EDT Pulse 79 02/24/2024 1:09 PM EDT Temperature - - Respiratory Rate - - Oxygen Saturation - - Inhaled Oxygen Concentration - - Weight - - Height - - Body Mass Index - - Plan of Treatment Health Maintenance Due Date Last Done Comments Anxiety Screening 1963 Diabetes Screening 1963 Hepatitis C Screening 1963 Lipid Screening 1963 Tobacco Screening 1963 HIV Screening 1978 Imm-DTaP/Tdap/Td (1 - Tdap) 1982 CT Colonography 2008 Colonoscopy 2008 Colorectal Cancer Screening 2008 FIT/gFOBT 2008 Fecal DNA 2008 Flexible Sigmoidoscopy 2008 Imm-Zoster, Recombinant (1 of 2) 2013 [id number] ( season) 2024 Imm-Influenza (#1) 2024 Alcohol and Drug Screen 10/13/2024 Depression Annual Screen 10/13/2024 Dental BW 12/17/2024 12/16/2023 Dental Examination 12/17/2024 12/16/2023 Dental Perio Charting 12/17/2024 12/16/2023 Dental Prophy 12/17/2024 12/16/2023 Hypertension Screening (#1) 02/23/2025 Dental FMX/Pano 12/17/2028 12/16/2023, 12/16/2023 Procedures Procedure Name Priority Date/Time Associated Diagnosis Comments Full INTRAORAL - COMP SERIES OF RADIOGRAPHIC IMAGES Routine 12/16/2023 2:00 PM EST Retained tooth root Full PROPHYLAXIS - ADULT Routine 024 2:00 PM EST Retained tooth root Full COMP ORAL EVALUATION - NEW/ESTABLISHED PATIENT Routine 12/16/2023 2:00 PM EST Retained tooth root from Last 3 Months or Most Recently Relevant to Health Maintenance Insurance [place] MEDICAID DENTAL [facility]
--- OUTSIDE RECORDS SUMMARY | 2025-02-22 10:26 | XMS_ITS | Encounter Summary ---
Author Organization [facility] Address [address] [place] [address] Phone Care Team Providers Care Blocker And Polisher Gold Wheel Name Role Phone Tracy Boone MD Primary Care Provider Encounter Details Date Type Department Care Team (Late st Contact Info) Description 06/24/2022 Office Communication [facility] [address] [place] [address] Deana Marlow Social History Tobacco Use Types Packs/Day Years Used Date Smoking Tobacco: Never Smokeless Tobacco: Never Alcohol Use Standard Drinks/Week Comments Yes 0 (1 standard drink = 0.6 oz pur e alcohol) Sex and Gender Information Value Date Recorded Sex Assigned at Not on file Legal Sex Male 5:08 PM EST Gender Identity Not on file Sexual Orientation Not on file documented as of this encounter Miscellaneous Notes * Telephone Encounter - Deana Marlow - 06/24/2022 11:54 AM EDT Pt's appt was changed and now lab order he needs to do before this 's appt is . Can you re-order BMP [place] [facility] [place] at [phone] documented in this encounter Plan of Treatment Not on file documented as of this encounter Visit Diagnoses Not on filedocumented in this encounter Care Teams Blocker And Polisher Gold Wheel Relationship Specialty Start Date End Date Tracy Boone MD [facility] [address] [place] [address] PCP - General 10/23/20 documented as of this encounter
== END 2025-02-22 10:00 | disposition home or self-care (01) ==
LOC: HO.HKA 09:45
PROVIDERS: PCP Internal Medicine; Visit Provider Internal Medicine Hypertension Specialist
DX: N18.9 Chronic kidney disease, unspecified (principal)
CPT/HCPCS: 99214

== ENCOUNTER → 2025-02-22 09:44 | Outpatient (BNVA) | payer OTHER, SELFPAY | PROVIDERS: PCP Internal Medicine; Visit Provider Internal Medicine Hypertension Specialist | DX: I12.9 Hypertensive chronic kidney disease with stage 1 through stage 4 chronic kidney disease, or unspecified chronic kidney disease (principal); N18.30 Chronic kidney disease, stage 3 unspecified | CPT/HCPCS: 99212 ==

== ENCOUNTER 2025-03-01 14:57 | Outpatient (REF) | payer OTHER, SELFPAY ==
--- OUTSIDE RECORDS SUMMARY | 2025-03-01 16:06 | XMS_ITS | Clinical Summary ---
Author Organization [facility] Address [address] [place] [address] Care Team Providers Care Equipment Tester Name Role Phone Unavailable Primary Care Provider [...] 2008 Imm-Zoster, Recombinant (1 of 2) 2013 [id number] ( season) 2024 Imm-Influenza (#1) 2024 Alcohol [...] to Health Maintenance Insurance [place] DENT[place] [facility] DENTAL
--- OUTSIDE RECORDS SUMMARY | 2025-03-01 16:06 | XMS_ITS | Encounter Summary ---
Author Organization [facility] Address [address] [place] [address] Phone Care Team Providers Care Gizzard Peeler Name Role Phone Tracy Boone MD Primary Care Provider Encounter Details Date Type Department Care Team (Late st Contact Info) Description 06/24/2022 Office Communication [facility] [address] [place] [address] Deana Marlow Social History Tobacco [...] you re-order BMP bloodwork and fax to [facility] [place] at [phone] documented in this encounter Plan of Treatment Not on file documented as of this encounter Visit Diagnoses Not on filedocumented in this encounter Care Teams Gizzard Peeler Relationship Specialty Start Date End Date Tracy Boone MD [facility] [address] [place] [address] PCP - General 10/23/20 documented as of this encounter
--- OUTSIDE RECORDS SUMMARY | 2025-03-01 16:06 | XMS_ITS | Clinical Summary ---
Author Organization [facility] Address [address] [place] [address] Phone Care Team Providers Care Engineering Vice President Name Role Phone Tracy Boone MD Primary [...] this topic Insurance Medicaid Medicaid Care Teams Engineering Vice President Relationship Specialty Start Date End Date Tracy Boone MD [address] [place] [address] PCP - General 10/23/20
[2025-03-01 16:23] LABS: MANUAL DIFF FLAG NO
[2025-03-01 16:44] LABS: Basophils Absolute Auto 0.1 X10*3/uL (0.0-0.2); Eosinophils Absolute Auto 0.3 X10*3/uL (0.0-0.4); Eosinophils Percent Auto 5.7 % (0-4); Hematocrit 36.4 % (42.0-52.0); Hemoglobin 12.6 g/dl (14.0-18.0); Imm Gran Abs Auto 0.01 X10*3/uL (0.00-0.03); Imm Gran Pct Auto 0.2 % (0.0-0.4); Lymphocytes Absolute Auto 1.1 X10*3/uL (1.2-4.9); Lymphocytes Percent Auto 18.5 % (20-40); Mean Corpuscular HGB Conc 34.6 g/dl (31.0-36.0); Mean Corpuscular Hemoglobin 29.9 pg (27.0-33.0); Mean Corpuscular Volume 86.3 fL (80.0-98.0); Mean Platelet Volume 9.4 fL (9.4-12.4); Monocytes Absolute Auto 0.5 X10*3/uL (0.1-1.2); Monocytes Percent Auto 8.7 % (2-11); Neutrophils Absolute Auto 3.9 x10*3/uL (2.0-8.3); Neutrophils Percent Auto 65.9 % (45-73); Platelet Count 263 X10*3/uL (160-400); Red Blood Count 4.22 X10*6/uL (4.60-5.80)
[2025-03-01 17:02] LABS: Alanine Aminotransferase 11 U/L (0-40); Albumin Level 4.3 g/dL (3.5-5.0); Alkaline Phosphatase 116 U/L (39-117); Anion Gap 10 (12-20); Aspartate Amino Transferase 20 U/L (5-37); Bilirubin Total 0.4 mg/dL (0.0-1.0); Blood Urea Nitrogen 15 mg/dL (9-16); Calcium 8.9 mg/dL (8.4-10.2); Carbon Dioxide 26 mmol/L (22-29); Chloride 104 mmol/L (96-108); Estimated Glomerular Filt Rate > 60; Glucose Random 93 mg/dL (60-115); Potassium 3.6 mmol/L (3.3-5.1); Sodium 136 mmol/L (135-145); Total Protein 6.8 g/dL (6.5-8.0)
[2025-03-01 17:24] LABS: Ferritin 45 ng/mL (20-250)
[2025-03-01 17:31] LABS: Vitamin B12 447 pg/mL (200-900)
== END 2025-03-01 14:58 | disposition home or self-care (01) ==
LOC: HO.HMGCLDS 14:57
PROVIDERS: Internal Medicine Hypertension Specialist; PCP Internal Medicine; Visit Provider Internal Medicine
DX: I12.9 Hypertensive chronic kidney disease with stage 1 through stage 4 chronic kidney disease, or unspecified chronic kidney disease (principal); N18.9 Chronic kidney disease, unspecified; D64.9 Anemia, unspecified; M25.511 Pain in right shoulder; R97.20 Elevated prostate specific antigen [PSA]
CPT/HCPCS: 36415; 80053; 82607; 82728; 84153; 85025

== ENCOUNTER 2025-08-23 09:56 | Outpatient (REF) | payer OTHER, SELFPAY ==
--- OUTSIDE RECORDS SUMMARY | 2025-08-23 11:19 | XMS_ITS | Clinical Summary ---
Author Organization [facility] Address [address] [place] [address] Care Team Providers Care Processor Inspector Name Role Phone Unavailable Primary Care Provider [...] 2008 Fecal DNA 2008 Flexible Sigmoidoscopy 2008 Imm-Pneumococcal 50+ (1 of 1 - PCV) 2013 Imm-Zoster, Recombinant (1 of 2) 2013 Alcohol and Drug Screen 10/13/2024 Depression Annual Screen 10/13/2024 Dental BW 12/17/2024 12/16/2023 Dental Examination 12/17/2024 12/16/2023 Dental Perio Charting 12/17/2024 12/16/2023 Dental Prophy 12/17/2024 12/16/2023 Hypertension Screening (#1) 02/23/2025 [id number] ( - season) 2025 Imm-Influenza (#1) 2025 Dental FMX/Pano 12/17/2028 12/16/2023, 12/16/2023 Procedures Procedure [...] Most Recently Relevant to Health Maintenance Insurance [place] Sub[place] Plan / Payer (Ef fective 2023-Present) Name:Vignesh Yusuf Relation to Subscriber:Self Name:Vignesh Yusuf Payer ID:[id number] Group ID:Not on file Type:Medicaid Address: [place] [id number] [facility]
--- OUTSIDE RECORDS SUMMARY | 2025-08-23 11:19 | XMS_ITS | Patient Health Record ---
Author Organization [facility] Address [address] [place] [address] Care Team Providers Care Bundler Name Role Phone Tamelajoao Tracy Primary Care Provider Unavailab Chencho Mata Jr Unavailable Reason For Referral No Information Medications Medication SIG (Take, Route, Frequency, Duration) Notes Start Date End Date Status LaMICtal 2 tablets at hs and 1 tablet in am Active Colyte with Flavor Packs 240 GM As directed Orally Over the specified time.; Duration: 1 day(s) 11/09/2015 Active Simvastatin 20 MG 1 tablet in the even ing Orally Once a day Active SEROquel 400 MG 2 tablet at bedtime Orally at hs Active Problems Problem Type SNOMED Code ICD Code Onset Dates Problem Status W/U Status Risk Notes Problem Rectal bleeding (63877603) Rectal bleeding (K62.5) Active confirmed Plan Of Treatment No Information Insurance Providers Payer Name Payer Address Payer Phone Subscriber Number Group Number Insured Name Patient Relationship to Insured Coverage Start Date Coverage End Date [facility] [address] [address] [place], [place] [id number] HENRY ARAIZA Self - patient is the insured MEDICAID OF [facility] [address] [place] [address] [id number] HENRY ARAIZA Self - patient is the insured Medical (General) History Medical History History ICD Code kidney disease calcium deposits, right testicle elevated cholesterol bipolar disorder seizure disorder asthma Surgical History Surgery Date(Month/Year) hand surgery left tendon tear
[2025-08-23 13:46] LABS: Appearance Urine Clear; Glucose Urine UA Negative (Negative); PH 6.5 (5.0-9.0); Specific Gravity - Urine 1.020 (1.005-1.025); UMIC TRIGGER UA YES
[2025-08-23 13:50] LABS: Hematocrit 38.8 % (42.0-52.0); Hemoglobin 13.2 g/dl (14.0-18.0); Mean Corpuscular HGB Conc 34.0 g/dl (31.0-36.0); Mean Corpuscular Hemoglobin 29.7 pg (27.0-33.0); Mean Corpuscular Volume 87.4 fL (80.0-98.0); NRBC Abs Auto 0.000 X10*3/uL (0.0-0.012); NRBC Pct Auto 0.0 /100WBC (0.0-0.2); Platelet Count 272 X10*3/uL (160-400); Red Blood Count 4.44 X10*6/uL (4.60-5.80); White Blood Count 4.6 X10*3/uL (4.8-10.8)
[2025-08-23 14:30] LABS: Total Protein Urine Random 11 mg/dL (<12)
== END 2025-08-23 09:57 | disposition home or self-care (01) ==
LOC: HO.HMGCLDS 09:56
PROVIDERS: PCP Internal Medicine; Visit Provider Internal Medicine Hypertension Specialist
DX: N18.9 Chronic kidney disease, unspecified (principal)
CPT/HCPCS: 36415; 81001; 81003; 82570; 84156; 85027

== ENCOUNTER 2025-08-25 11:07 | Outpatient (AMB) | payer OTHER, SELFPAY ==
[2025-08-25 11:05] VITALS: BP 92/66; PULSE 94; O2SAT 97; BMI 23.9
--- NOTE | 2025-08-25 11:05 | HO.NEPHOV_ITS ---
Vital Signs 08/25/25 11:05 Height 6 ft 1 in Weight 181 lb BMI 23.9 BP 92/66 Blood Pressure Location Lt brachial Position Sitting Pulse 94 Pulse Source Pulse Oximeter Pulse Oximetry (%) 97 Oxygen Delivery Method Room Air Intake Visit Reasons: 6 MO FU Photographer Lithographic Required: No Accompanied by: Self / Same As Patient Allergies Penicillins Allergy (Mild, Verified 08/25/25 11:06) UNKNOWN Sulfa (Sulfonamide Antibiotics) Allergy (Mild, Verified 08/25/25 11:06) UNKNOWN Medication List - Last Reconciled 08/25/25 by Brendon Mcwilliams MD albuterol sulfate 90 mcg/actuation (Ventolin HFA) inhalation PRN losartan 25 mg PO DAILY oxcarbazepine 1,800 mg PO DAILY quetiapine 800 mg PO BEDTIME simvastatin 20 mg PO BEDTIME zolpidem 10 mg PO BEDTIME PRN HPI Comments Details: Vignesh is here for follow-up regarding CKD. He is well known to me. He has mild CKD and renal function has been stable for the last few years. Today he has no new complaints. His oral intake is adequate. No changes have been made to his medications He has no polyuria or polydipsia. History of flank pain and he has not had any ultrasonogram 02/22/25 59-year-old male presenting with complaints of chest pain that occurs mainly at night or during stressful situations. The pain is localized to the left side and described as a heaviness beneath the chest, without any radiating pain. The patient reports experiencing constipation, which is concurrent with his other condition; however, constipation is not his main concern at this visit. He has not made any changes to his prescribed medications, which include losartan and oxycodone. He has been diagnosed with chronic kidney disease currently staged at II to early III, alongside essential hypertension and asthma. He continues to take measures to stay hydrated and follows dietary restrictions relevant to his conditions. The last laboratory work was conducted in August with a new evaluation planned. He mentions his adherence to aspirin for cardiac protection and denies taking NSAIDs. 08/25/25 The patient is a 60-year-old male presenting with Chronic Kidney Disease and associated hypotension. The patient has been experiencing low blood pressure, with readings as low as 92/66 mmHg, which is considered too low. He is currently on losartan 25 mg for blood pressure management, but it has been advised to stop due to hypotension. The patient also reports a history of asthma, for which he uses inhalers. He denies any recent cough but mentions using penicillin. Additionally, the patient has a history of bipolar disorder, which he describes as causing him to overreact to small issues. He uses marijuana occasionally to help with appetite and relaxation. PFSH Family History Father Kidney disease Sister Heart attack Social History Alcohol intake: never Patient Tobacco Use Status: Never used Tobacco Physical Exam Vital Signs: Last Vital Signs Pulse 94 08/25/25 11:05 BP 92/66 08/25/25 11:05 Pulse Ox 97 08/25/25 11:05 Oxygen Delivery Method Room Air 08/25/25 11:05 BMI result Body Mass Index 23.9 Comfortable Neck supple no JVD. Lungs entry equal no rales. Heart S1-S2 heard no gallop or rub. Abdomen soft nontender. Neuro alert awake oriented. No asterixis. Extremities no edema. Results Reviewed Nephrology Results: Hgb, (14.0-18.0) 13.2 g/dl L 08/23/25 WBC, (4.8-10.8) 4.6 X10*3/uL L 08/23/25 Plt Count, (160-400) 272 X10*3/uL 08/23/25 Sodium, (135-145) 136 mmol/L 03/01/25 Potassium, (3.3-5.1) 3.6 mmol/L 03/01/25 Chloride, (96-108) 104 mmol/L 03/01/25 Carbon Dioxide, (22-29) 26 mmol/L 03/01/25 BUN, (9-16) 15 mg/dL 03/01/25 Creatinine, (0.5-1.4) 0.79 mg/dL 03/01/25 Calcium, (8.4-10.2) 8.9 mg/dL Δ 03/01/25 Urine Protein, (Neg-Trace) Negative mg/dL 08/23/25 Urine Creatinine 169.59 mg/dL 08/23/25 Renal US 07/05/24 Assessment & Plan Assessment & Plan (1) CKD (chronic kidney disease): Code(s): N18.9 - Chronic kidney disease, unspecified Category: Medical Plan Vignesh has mild CKD. Renal function stable adn at baseline. Goal is to slow the progression of the kidney disease. Encouraged him to stand low-sodium diet He has to increase his fluid intake. Continue to avoid nephrotoxic agents. Watch for polyuria polydipsia. BP is rather low Will decrease Losartan to 25 mg QD from 50 mg ( 09/06/24) 02/22/25 We will conduct comprehensive blood work focusing on kidney and liver function tests and a urine analysis for protein screening. This is to track chronic kidney disease marked currently as stage II to early III. The current management plan including losartan and the inhaler remains unchanged due to stable status. Advise continues on lifestyle modifications including sufficient hydration, low salt intake, and avoidance of NSAIDs to protect kidney function. The patient will continue taking aspirin as preventive cardiac management. We will follow up in six months for routine monitoring unless new symptoms warrant earlier consultation. 08/25/25 Renal function is stable BP is low but asymptomatic No changes made today Encouraged to increase fluid intake Avoid nephrotoxisn including NSAIDS Orders: Orders Basic Metabolic Panel 6 Months N18.9 - Chronic kidney disease, unspecified Total Protein Urine Random 6 Months N18.9 - Chronic kidney disease, unspecified Creatinine Urine 6 Months N18.9 - Chronic kidney disease, unspecified UA and rflx microscopic 6 Months N18.9 - Chronic kidney disease, unspecified Coding Level of Care Code Est Pt Level 4 (71318) Diagnoses CKD (chronic kidney disease) N18.9
--- OUTSIDE RECORDS SUMMARY | 2025-08-25 13:59 | XMS_ITS | Patient Health Record ---
Author Organization [facility] Address [address] [place] [address] Care Team Providers Care Key Holder Name Role Phone Tamelajoao Tracy Primary Care [...] W/U Status Risk Notes Problem Rectal bleeding ([id number]) Rectal bleeding (K62.5) Active confirmed Plan Of Treatment No Information Insurance Providers Payer Name Payer Address Payer Phone Subscriber Number Group Number Insured Name Patient Relationship to Insured Coverage Start Date Coverage End Date [facility] [address] [address] [place], [place] [id number] HENRY ARAIZA Self - patient is the insured MEDICAID OF [facility] [address] [place] [address] [id number] HENRY ARAIZA Self - patient is the insured Medical (General) History Medical History History ICD Code kidney disease calcium deposits, right testicle elevated cholesterol bipolar disorder seizure disorder asthma Surgical History Surgery Date(Month/Year) hand surgery left tendon tear
--- OUTSIDE RECORDS SUMMARY | 2025-08-25 14:00 | XMS_ITS | Clinical Summary ---
Author Organization [facility] Address [address] [place] [address] Phone Care Team Providers Care Boat Master Name Role Phone Tracy Boone MD Primary [...] Colorectal Cancer Screening: Sigmoidoscopy 2012 Influenza Vaccine (#1) 2025 Hepatitis B Vaccine Aged Out No longe r eligible based on patient's age to complete this topic Insurance Medicaid Medicaid Care Teams Boat Master Relationship Specialty Start Date End Date Tracy Boone MD [address] [place] [address] PCP - General 10/23/20
--- OUTSIDE RECORDS SUMMARY | 2025-08-25 14:00 | XMS_ITS | Clinical Summary ---
Author Organization [facility] Address [address] [place] [address] Care Team Providers Care Industrial Ecology Technician Name Role Phone Unavailable Primary Care Provider [...] Prophy 12/17/2024 12/16/2023 Hypertension Screening (#1) 02/23/2025 [id number] ( - season) 2025 Imm-Influenza (#1) 2025 [...] Most Recently Relevant to Health Maintenance Insurance [place]ID DENT[place] Member Subscriber Plan / Payer (Ef fective 2023-Present) Name:Vignesh Yusuf Relation to Subscriber:Self Name:Vignesh Yusuf Payer ID:[id number] Group ID:Not on file Type:Medicaid Address: [place] [id number] [facility]
== END 2025-08-25 11:17 | disposition home or self-care (01) ==
PROVIDERS: PCP Internal Medicine; Visit Provider Internal Medicine Hypertension Specialist
DX: N18.9 Chronic kidney disease, unspecified (principal)
CPT/HCPCS: 99214

== ENCOUNTER → 2025-08-25 11:07 | Outpatient (BNVA) | payer OTHER, SELFPAY | PROVIDERS: PCP Internal Medicine; Visit Provider Internal Medicine Hypertension Specialist | DX: I95.9 Hypotension, unspecified (principal); N18.9 Chronic kidney disease, unspecified; J45.909 Unspecified asthma, uncomplicated | CPT/HCPCS: 99212 ==